=== PATIENT | male | born 1975 | race Caucasian/White ===

== ENCOUNTER 2016-11-06 18:42 | Emergency (ER) | payer OTHER ==
[~2016-11-06] VITALS: Ht 177.8 cm; Wt 190.9 kg
[2016-11-06 18:45] VITALS: BP 159/105; PULSE 94; RESP 16; O2SAT 99
[2016-11-06 18:50] VITALS: BP 160/102; PULSE 90; RESP 21; O2SAT 99
--- NOTE | 2016-11-06 19:04 | ED.REPORT ---
HPI-General Illness Date of Service Nov 06, 2016 ED Provider: Jose Polk DO A 40 year old male with a history of anxiety, depression, and hypertension presents to the ED complaining of palpitations. 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 He measured his pulse at the time, which indicated an irregular pulse with a rate of 120. This was accompanied by lightheadedness. The pt has experienced similar symptoms before, which were diagnosed as a panic attack related to Celexa. He is now on Xanax. The pt also reports that he was ill recently with diarrhea lasting three to four days. This ended two days ago and he has been feeling well since. He denies shortness of breath. Nursing Notes Stated Complaint: HEART RACING Chief Complaint: General Complaint Nursing Notes Reviewed: Yes Allergies: Uncoded Allergies: SULFA (Allergy, Unknown, 11/06/16) General Time Seen by MD: 19:03 Chief Complaint Other (Palpitations) Hx Obtained From: Patient Arrived By: Walk-in Sudden in Onset?: Yes Onset Occurred: 1 - 4 hours ago Recent Healthcare: No recent doctor visit, No recent hospitalization Similar Sx Previous: Yes Past Medical History Past Medical History depression anxiety hypertension Past Surgical History none reported Smoking History Unknown if Ever Smoker Occupation business development analyst Ambulatory Status Independent Review of Systems Full Review of Systems Constitutional: Denies: Chills, Fever Respiratory: Denies: Non-productive cough, Shortness of breath Cardiovascular: Reports: Palpitations GI: Denies: Abdominal pain Musculoskeletal: Denies: Back pain, Neck pain Skin: Denies Rash Neurologic: Reports: Lightheaded Complete sys rev & neg: except as marked. Physical Exam Vital Signs Vital Signs Date Time Temp Pulse Resp B/P Pulse Ox O2 Delivery O2 Flow Rate FiO2 11/07/16 00:40 36.5 80 15 167/95 96 Room Air 11/07/16 00:11 78 23 151/85 99 Room Air 11/06/16 22:57 88 20 148/87 100 Room Air 11/06/16 18:50 90 21 160/102 99 Room Air 11/06/16 18:45 36.2 94 16 159/105 99 Room Air Initial VS: Reviewed General/Constitutional: Awake, Alert Head / Eyes: Atraumatic, Normocephalic, PERRL, EOMI ENT: Atraumatic, Airway patent, Mucous membranes moist Neck: Atraumatic, Supple, Full range of motion Respiratory / Chest: Atraumatic, Breath sounds NL, Breath sounds = bilat, No respiratory distress Cardiovascular: Heart rate NL, Regular rhythm, Heart sounds NL Abdomen: Atraumatic, Soft, Non-tender Back: Atraumatic, Full range of motion Upper Extremities Upper Extremity / MS: Atraumatic, Full range of motion Lower Extremity / Pelvis / MS: Atraumatic, Full range of motion Skin: Atraumatic, Color NL, No rash, Warm, Dry Neurologic: Oriented X3, Speech NL, No motor deficits, No sensory deficits Psychiatric: Affect NL, Mood NL Interpretation & Diagnostics Interpretation & Diagnostics: Angiography CT: IMPRESSION: 1. No large central pulmonary embolus. Please note there is suboptimal contrast opacification of the segmental and subsegmental pulmonary arteries and small pulmonary embolic cannot be excluded. 2. No acute lung opacities. 3. Hepatic steatosis. Dictated by: Jalyn Aguillon MD, PhD on 11/06/2016 at 21:20 Approved by: Jalyn Aguillon MD, PhD on 11/06/2016 at 21:20 Lab Results Interpretation Result Diagram: 11/06/16 1938 11/06/16 1938 Test 11/06/16 19:38 11/06/16 22:25 White Blood Count 5.9th/mm3 (3.8-10.1) Red Blood Count 4.68mil/mm3 (4.40-5.80) Hemoglobin 14.9g/dL (13.8-17.2) Hematocrit 44.1% (41.0-50.0) Mean Corpuscular Volume 94.2fL (81-100) Mean Corpuscular Hemoglobin 31.8pg (27.0-35.0) Mean Corpuscular Hemoglobin Concent 33.8% (32.0-37.0) Red Cell Distribution Width 12.7% (12.3-15.4) Platelet Count 188bil/L (150-400) Neutrophils (%) (Auto) 58.2% (40-74) Lymphocytes (%) (Auto) 29.2% (14-46) Monocytes (%) (Auto) 9.2% (4-12) Eosinophils (%) (Auto) 2.9% (0-5) Basophils (%) (Auto) 0.3% (0-3) D-Dimer 0.6mg/L (<0.50) Sodium Level 143mEq/L (134-144) Potassium Level 4.0mEq/L (3.5-5.2) Chloride Level 103mEq/L (97-108) Carbon Dioxide Level 27mmol/L (18-29) Blood Urea Nitrogen 10mg/dL (6-20) Creatinine 0.81mg/dL (0.76-1.27) Estimat Glomerular Filtration Rate 113mL/min (>59) Glucose Level 112mg/dL (60-99) Calcium Level 9.2mg/dL (8.5-10.1) Total Bilirubin 0.4mg/dL (0.0-1.2) Aspartate Amino Transf (AST/SGOT) 30U/L (0-50) Alanine Aminotransferase (ALT/SGPT) 41U/L (0-44) Alkaline Phosphatase 77U/L (25-150) Total Protein 7.9g/dL (6.4-8.4) Albumin 4.1g/dL (3.4-5.0) Hold James Top Tube Received (Received) Troponin T 0.010ug/L (0.0-0.011) Pulse Oximetry Interpretation Pulse Oximetry Interpretation: 99% on room air Pulse Oximetry: Pulse Ox normal ECG Interpretation ECG Interpretation: normal sinus rhythm with a rate of 79 Time: 19:04 Interpreted by: ED physician Rhythm Strip Interpretation : Rhythm Strip Interpretation: normal sinus rhythm Time: 19:04 Rhythm Strip Interpretation: Interpreted by me Re-Eval/Medical Decision Source of Hx: Old records Time of Eval: 00:15 Patient Status: Condition improved Re-Evaluation/Progress Note: Pt is rechecked, who is resting comfortably. He is informed of lab and radiology results, as well as the diagnosis and plan for discharge. The pt understands and agrees with the plan. All questions are addressed at this time. Counseled Regarding: Diagnosis, Lab results, Need for follow-up, When/why to return to ED Discharge & Departure Primary Impression: Palpitations Additional Impression: Anxiety Disposition: Home Discharge Condition All VS Reviewed: Yes Condition: Stable Patient Instructions: Chest Pain (ED), Generalized Anxiety Disorder (ED), Palpitations (ED) Additional Instructions: These heart blood tests do not show evidence of heart injury. The CAT scan did not show evidence of a central pulmonary. If you have any further symptoms then he will need a follow-up CAT scan due to the scan not being sensitive enough to roll picker peripheral pulmonary emboli. Usually Xanax as prescribed. Take 1 Xanax every 8 hours as needed for anxiety. I would like you to call your doctor tomorrow morning to set up a follow-up. Return if you have any problems or any worsening symptoms. Do not drive or drink alcohol or consuming the Xanax. Referrals: Dante Thorne MD (PCP) Kwame Attestation Portions of this note were transcribed by Ellen Gonzalez. I, Dr. Polk personally performed the history, physical exam and medical decision-making; I reviewed and confirmed the accuracy of the information in the transcribed note. Signed by: Kwame Quintero, 11/07/2016, 00:52 copies to: Dante Thorne MD, Todd P DO Nov 06, 2016 19:04 ELLEN GONZALEZ Nov 06, 2016 19:23
[2016-11-06] MEDS ORDERED: 0.9% Sodium Chloride 1,000 ML IV ONE ×2 (19:15→22:00)
[2016-11-06 19:49] LABS: BASOPHILS % (AUTO) 0.3 % (0-3); EOSINOPHILS % (AUTO) 2.9 % (0-5); MONOCYTES % (AUTO) 9.2 % (4-12); Mean Corpuscular Hemoglobin 31.8 pg (27.0-35.0); Mean Corpuscular Volume 94.2 fL (81-100); NEUTROPHILS % (AUTO) 58.2 % (40-74); Platelet Count 188 bil/L (150-400)
--- NOTE | 2016-11-06 21:21 | DRSVH ---
PROCEDURE: CT ANGIO CHEST PULMONARY EMBOLISM ([id number]) INDICATIONS: chest pain, tachycardia, elevated ddimer TECHNIQUE: After the administration of intravenous contrast, 2 mm thick sections acquired from the pulmonary api john to the posterior costophrenic angles. 3-dimensional maximum intensity projection (MIP) coronal a nd sagittal reformats were then acquired through the thorax. For radiation dose reduction, the follo wing was used: automated exposure control, adjustment of mA and/or kV according to patient size. COMPARISON: None. FINDINGS: Image quality: Image quality limited by patient body habitus and suboptimal contrast opacification o f the segmental and subsegmental pulmonary arteries. Pulmonary arteries: Pulmonary arteries are normal in size, and demonstrate no intraluminal filling d efects to suggest large central pulmonary embolism. Lungs and pleura: Lungs are clear. No pleural effusions or pneumothorax. Central and peripheral ai rways are patent. Mediastinum: Heart size is normal, without pericardial effusion. No mediastinal or hilar adenopathy . Thoracic aorta is normal in caliber and enhancement. Esophagus is normal in caliber, without hiat al hernia. Bones and chest wall: No suspicious bony lesions. Ribs and thoracic spine appear intact throughout. Thyroid gland is normal where visualized. No axillary or supraclavicular adenopathy. Abdomen: Diffuse fatty infiltration of the liver is noted. IMPRESSION: 1. No large central pulmonary embolus. Please note there is suboptimal contrast opacification of the segmental and subsegmental pulmonary arteries and small pulmonary embolic cannot be excluded. 2. No acute lung opacities. 3. Hepatic steatosis. Dictated by: Jalyn Aguillon MD, PhD on 11/06/2016 at 21:20 Approved by: Jalyn Aguillon MD, PhD on 11/06/2016 at 21:20
[2016-11-06 22:57] VITALS: BP 148/87; PULSE 88; RESP 20; O2SAT 100
[2016-11-07 00:11] VITALS: BP 151/85; PULSE 78; RESP 23; O2SAT 99
[2016-11-07 00:40] VITALS: BP 167/95; PULSE 80; RESP 15; O2SAT 96
== END 2016-11-07 00:38 | disposition home or self-care (01) ==
LOC: SED 18:42
DX: R00.2 Palpitations (principal); F41.9 Anxiety disorder, unspecified; I10 Essential (primary) hypertension; F32.9 Major depressive disorder, single episode, unspecified; Z88.2 Allergy status to sulfonamides
CPT/HCPCS: 36415; 71275; 80053; 84484; 85025; 85379; 93005; 96360; 96361; 99285; J7030; Q9967